=== PATIENT | female | born 1970 | race Asian ===

== ENCOUNTER 2019-02-03 20:52 | Emergency (ER) | payer OTHER ==
[2019-02-03 21:01] VITALS: BP 135/86; PULSE 78; TEMP 97.6; BMI 21.4
[2019-02-03 21:44] LABS: BASO % 1.3 % (0-2.0); EOS % 4.8 % (0-4.5); HEMATOCRIT 42.2 % (32.4-45.2); HEMOGLOBIN 14.2 GM/dl (10.7-15.3); LYMPH % 42.5 % (8-40); MCH 30.6 pg (25.7-33.7); MCHC 33.7 g/dl (32.0-36.0); MEAN CELL VOLUME 90.7 fl (80-96); MEAN PLT VOLUME 9.3 fl (7.5-11.1); MONO % 6.2 % (3.8-10.2); NEUT % 45.2 % (42.8-82.8); PLATELET COUNT 242 K/MM3 (134-434); RBC 4.65 M/mm3 (3.60-5.2); RDW 12.2 % (11.6-15.6); WHITE BLOOD COUNT 5.5 K/mm3 (4.0-10.8)
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
[2019-02-03 21:47] LABS: ALK PHOS 45 U/L (45-117); ANION GAP 9 MMOL/L (8-16); BILIRUBIN,TOTAL 0.5 mg/dl (0.2-1); BLOOD UREA NITROGEN 18 mg/dl (7-18); CALCIUM 9.5 mg/dl (8.5-10); CHLORIDE 104 mmol/L (98-107); CO2 24 mmol/L (21-32); GLUCOSE,RANDOM 113 mg/dl (74-106); POTASSIUM 4.2 mmol/L (3.5-5.1); SGOT/AST 18 U/L (15-37); SGPT/ALT 15 U/L (13-61); SODIUM 137 mmol/L (136-145)
== END 2019-02-03 22:00 | disposition home or self-care (01) ==
LOC: FER 20:52
DX: R07.0 Pain in throat (principal)
CPT/HCPCS: 36415; 80053; 85025; 99282-25